=== PATIENT | female | born 1975 | race Caucasian/White ===

== ENCOUNTER → 2020-04-25 | Outpatient (CLI) | payer OTHER ==
[~2020-04-25] VITALS: Ht 167.6 cm; Wt 74.8 kg
[~2020-04-25] MED LIST: ACIDOPHILUS1 EAC3 PO; AMARYL1 MG PO; AMBIEN PO; BIRTH CONTROL PILL PO; CARAFATE 1 GM TA1 G1 PO; COLACE 100 MG100 MG PO; COREG PO; COREG25 MG PO; FLUOXETINE HCL20 M1 PO; HCTZ PO; IBUPROFEN 200200 M1 PO; INCASSIA0.35 MG PO; KEFLEX250 MG PO; METFORMIN HCL500 MG PO; MORPHINE TOP; MULTIVITAMINS PO; NEURONTIN 300M300 M2 PO; NORCO 5-325 TA1 EACH PO; OMEPRAZOLE40 MG PO; ONDANSETRON HCL4 M2 PO; PEPCID20 MG PO; PERCOCET PO; PROZAC PO; PROZAC20 MG PO; REMERON15 M2 PO; SILVADENE TOP; TRIAMTERENE-HC1 EAC1 PO; WOUND CLEANSER TOP; ZOCOR20 MG PO
[2020-04-25 15:05] VITALS: BP 104/75
--- NOTE | 2020-04-25 15:23 | NUR ---
Pain Clinic Assessment: 1. History of Osteoarthritis: Not Applicable History of Rheumatoid Arthritis: Not Applicable 2. Height: 5 ft. 6 in. 167.6 cm. Weight: 165.0 lb. oz. 74.844 kg. Patient's BMI: 26.6 3. Vital Signs: BP: 104/75 Pulse: 103 Resp: 16 Temp: 02 Sat: 99 ECG Mon: 4. Pain Intensity: 7 5. Fall Risk: Dizziness: N Needs help standing or walking: N Fallen in the last 3 months: N Fall risk comments: 6. Patient on Blood Thinner: None 7. History of Hypertension: Y 8. Opioid Therapy greater than 6 weeks: N Opiate Contract Signed: 9. Risk Assessment Tool Provided: 10. Functional Assessment Tool: 11. Recreational Drug Use: Never Drug Type: Tobacco Use: Never Smoker Tobacco Type: Amount or Packs/day: How Many Years: Alcohol Use: No Frequency: Quant:
--- NOTE | 2020-04-30 08:03 | HPC ---
[facility] [place] [address] PAIN MANAGEMENT CONSULTATION Name: AMARJIT SPANN [facility] #[facility] [id number] Admission: 04/25/20 Attend Phys: Arian Diaz DO Discharge: Date of : 79 Report #: [id number] THIS REPORT FOR: cc: Jesús López MD,Arian Wolfe MD, DO ~ DATE OF SERVICE: 04/25/2020 REFERRING PHYSICIAN: Mati López MD CHIEF COMPLAINT: Low back pain and left lower extremity pain with paresthesias. HISTORY OF PRESENT ILLNESS: As you know, the patient is a very pleasant 44-year-old female who reports acute onset of low back pain and left lower extremity pain with paresthesias that began in 02/2019. The patient states she was in normal state of health when the pain began. She denied any injury or trauma that may have led to symptom development. The patient indicates that she has trialed [id number] medications, rest and relaxation without improvement in symptoms. She sought evaluation through her primary care physician who trialled conservative medication management. This did not improve the patient's overall pain. She was subsequently sent for MRI of the lumbar spine, which showed some changes at the L5-S1 level concerning for lumbar radiculopathy. The patient was then subsequently referred to our clinic to discuss treatment options for suspected lumbar radiculopathy. The patient indicates pain today is continuous. She describes the pain as stabbing, numbness and tingling. She places current pain score of 7/10, daily average is 7/10, and worst pain has been is 7/10. The patient states standing, walking, sitting and lying down, tends to exacerbate symptoms, nothing appears to improve her symptoms today. She has been referred to our service to discuss treatment options for suspected lumbar radiculopathy. PAST MEDICAL HISTORY: 1. Diabetes mellitus type 2. 2. Hypertension. 3. Chronic stomach problems, status post gastric bypass. PAST SURGICAL HISTORY: 1. Cholecystectomy. 2. Gastric bypass. 3. Breast reduction. 4. LEEP procedure x 2. SOCIAL HISTORY: The patient denies tobacco, alcohol, IV or illicit drug use. She is working as a customs compliance specialist in sales. She is working, not [place] [address] [place] [address] PAIN MANAGEMENT CONSULTATION Name: AMARJIT SPANN Room #: [facility]PITAL[facility]ia.#: [id number] Admission: 04/25/20 Attend Phys: Arian Diaz DO Discharge: Date of : 79 Report #: [id number] receiving workmen's compensation nor is she trying to obtain disability benefits. She is not in litigation in regards to pain. REVIEW OF SYSTEMS: Positive for weight change, loss of appetite, changes in bowel movements, nausea, vomiting, frequent diarrhea interspersed with constipation, abdominal pain, peptic ulcer disease, numbness and tingling sensations involving the left lower extremity, depression. All other review of systems negative per 12-point review of systems other than those listed in history of present illness. Pain impact score 22/70 indicating nzyc-ns-[id number] interference of daily activities secondary to pain. ALLERGIES: No known drug allergies. CURRENT MEDICATIONS: Norethindrone 0.35 mg p.o. daily, Remeron 50 mg p.o. at bedtime, fluoxetine 20 mg per day, omeprazole 40 mg per day, multivitamin 1 tab per day. IMAGING: MRI lumbar spine obtained on 04/10/2020 shows L1-L2 with mild disk space narrowing, diffuse disk bulge with mild central canal stenosis measuring 10 mm. No foraminal stenosis. L2-L3, disk space narrowing, minimal disk bulge, left lateral disk osteophyte complex, no significant central canal nor neural foraminal stenosis. L3-L4, there are posterior changes of the disk representing annular tear, diffuse bulge of the disk itself. Facet and ligamentum flavum hypertrophy also noted. Canal was minimally affected to 9 mm, neural foramen are patent. L4-L5 facet and ligamentum flavum changes, minimal diffuse annular changes. Thecal sac measuring 9 mm, neural foramen are patent. L5-S1, facet and ligamentum flavum hypertrophy, diffuse annular bulging, focal central disk protrusion, thecal sac measuring 9 mm encroachment upon the left lateral recess and neural foramen are patent. PHYSICAL EXAMINATION: VITAL SIGNS: Blood pressure 104/75, pulse 103, respiratory rate 16 and unlabored. The patient is 99% on room air. Height 5 feet 6 inches tall, weight 165 pounds, BMI calculated 26.6. GENERAL: Well-developed, well-nourished, well-hydrated 44-year-old female appearing her stated age. She is placing current pain score at 7/10. HEENT: Normocephalic, atraumatic. Pupils equal, round and reactive. Extraocular muscles are intact. NEUROLOGIC: Speech fluent. The patient deemed an excellent historian. LUNGS: Clear, no wheeze, rhonchi or rales. CARDIOVASCULAR: Regular. No appreciable gallop, no rub. ABDOMEN: Soft, mildly obese, normoactive bowel sounds. EXTREMITIES: Show no clubbing, no cyanosis, and no edema. MUSCULOSKELETAL: Lower extremity strength equal and symmetrical 5/5. She has [address] [address] PAIN MANAGEMENT CONSULTATION Name: AMARJIT SPANN Room #: REG [facility]#: [id number] Admission: 04/25/20 Attend Phys: Arian Diaz DO Discharge: Date of : 77 Report #: [id number] intact to light touch from L1 through S2 dermatomes. Seated straight leg raising negative. Supine straight leg raising positive on the left. Tre's test is negative. Modified Gaenslen's positive for axial low back pain. Ankle clonus negative. Babinski is negative. Lumbar provocation testing is met with slight increase in axial back pain directly over the L4-L5 and L5-S1 facet joints. No SI joint dysfunction. ASSESSMENT: 1. Chronic lumbar radiculopathy. 2. Lumbosacral spondylosis with radiculopathy. 3. Disk degeneration of lumbar spine. 4. Lumbar degeneration. PLAN: 1. Based on today's physical exam and history the patient has provided, the description the patient uses in regards to pain, likely source of the patient's pain is lumbar radiculopathy. We are pleased to advise the patient that the findings of her MRI show little or no significant findings except for the L5-S1 level, which there is some encroachment upon the left lateral recess consistent with the patient's distribution of symptoms based on physical exam today. We discussed with the patient the treatment options we have available to address lumbar radiculopathy and the following was discussed with the patient today. We discussed physical therapy, stretching exercises and core strengthening as a treatment option. We discussed medication management utilizing neuropathic pain medications such as nortriptyline, amitriptyline, Cymbalta, Lyrica or gabapentin. We discussed epidural injections under fluoroscopic guidance for which the patient was referred to our clinic. We also discussed spinal cord stimulator therapy and surgical options, though I do not feel that these are necessary at this time. After reviewing the risks and benefits of all the proposed treatment options, the patient chose to move forward with possible lumbar epidural injection under fluoroscopic guidance. 2. Due to third libertarian payer restrictions, authorization will have to be obtained before the patient could undergo an epidural injection under fluoroscopic guidance. We will begin this authorization process immediately. Once it is completed, we will have the patient return to undergo the first in the series of lumbar epidural injections. 3. The patient was provided a prescription of gabapentin 300 mg dose. She will start 1 tab p.o. at bedtime for 2 nights, then increase to 2 tabs p.o. at bedtime for 2 nights and then 3 tabs p.o. at bedtime for 2 nights. If no improvement in symptoms and no side effects such as sleepiness, disorientation, confusion, mental slowing, then she will increase to 1 tab in the morning and 3 tabs at night for 2 days, continuing this titration until reaching 3 tabs t.i.d. The patient was given #180 tablets with a titration schedule to follow. We will discuss the medications at our followup visit once we have approval for the epidural. [address] [address] PAIN MANAGEMENT CONSULTATION Name: TIANAALBAN KIMHANIE Jaime Room #: REG [facility] Lehman#: [id number] Admission: 04/25/20 Attend Phys: Arian Diaz DO Discharge: Date of : 79 Report #: [id number] 4. We will see the patient back in followup visit once we have authorization to undergo a lumbar epidural injection. We are hopeful the patient will see some improvement in her symptoms with gabapentin therapy. 5. We wish to thank Dr. Mati López for the referral of the patient to our clinic. We will keep you apprised of response to treatment as we address suspected lumbar radiculopathy. Again, we wish to thank you for the opportunity to see the patient in consultation. <ELECTRONICALLY SIGNED> By: Arian Diaz DO 04/30/20 [id number] Arian Diaz DO /nt
== END ==
LOC: PAIN 07:07
PROVIDERS: ATTEND Anesthesiology Pain Medicine
DX: M51.16 Intervertebral disc disorders with radiculopathy, lumbar region (principal); M79.604 Pain in right leg; M79.605 Pain in left leg; R20.2 Paresthesia of skin; M47.27 Other spondylosis with radiculopathy, lumbosacral region; Z79.899 Other long term (current) drug therapy

== ENCOUNTER → 2020-10-16 | Outpatient (CLI) | payer OTHER ==
[~2020-10-16] VITALS: Ht 167.6 cm; Wt 85.1 kg
[2020-10-16 13:26] VITALS: BP 120/85
--- NOTE | 2020-10-16 13:32 | NUR ---
Pain Clinic Assessment: 1. History of Osteoarthritis: Not Applicable History of Rheumatoid Arthritis: Not Applicable 2. Height: 5 ft. 6 in. 167.6 cm. Weight: 187.6 lb. oz. 85.095 kg. Patient's BMI: 30.3 3. Vital Signs: BP: 120/85 Pulse: 90 Resp: 18 Temp: 02 Sat: 99 ECG Mon: 4. Pain Intensity: 4 5. Fall Risk: Dizziness: N Needs help standing or walking: N Fallen in the last 3 months: N Fall risk comments: 6. Patient on Blood Thinner: None 7. History of Hypertension: Y 8. Opioid Therapy greater than 6 weeks: N Opiate Contract Signed: 9. Risk Assessment Tool Provided: 10. Functional Assessment Tool: 11. Recreational Drug Use: Never Drug Type: Tobacco Use: Never Smoker Tobacco Type: Amount or Packs/day: How Many Years: Alcohol Use: No Frequency: Quant:
--- NOTE | 2020-10-17 12:59 | HPC ---
[facility] [place] [address] PAIN MANAGEMENT CONSULTATION Name: AMARJIT SPANN [facility] #: [facility] [id number] Admission: 10/16/20 Attend Phys: Arian Diaz DO Discharge: Date of : 79 Report #: [id number] THIS REPORT FOR: cc: Jesús López MD,Arian Wolfe MD, DO ~ DATE OF SERVICE: 10/16/2020 REFERRING PHYSICIAN: Dr. Mati López. CHIEF COMPLAINT: Low back pain, left lower extremity pain with paresthesias. HISTORY OF PRESENT ILLNESS: As you know, the patient is a very pleasant 45-year-old female who has returned today in followup visit to undergo lumbar epidural injection under fluoroscopic guidance. The patient indicates pain began in 02/2019. No inciting injury or trauma. She states she was in her normal state of health when all this began. She was seen in consultation per the request of Dr. López in 04/25/2020, diagnosed with lumbar radiculopathy and established a treatment course. She underwent a lumbar epidural injection at an outside facility with excellent benefit reporting up to 80% improvement overall. Unfortunately, her symptoms recurred without inciting injury or trauma. She states she was going about her daily activity, which she felt a sharp intense pain in low back and then began to radiate down the leg. She trialled conservative treatment and home stretching, but this did not improve symptoms. She made today's appointment to discuss undergoing a lumbar epidural injection given her efficacy with previous injections. ALLERGIES: No known drug allergies. CURRENT MEDICATIONS: Multivitamin 1 tablet per day, fluoxetine 20 mg per day, Remeron 15 mg p.o. q.a.m., norethindrone 0.35 mg once a day. SOCIAL HISTORY: The patient denies tobacco, alcohol or IV illicit drug use. She is working, not receiving workmen's compensation, unaccompanied today. IMAGING: No new imaging available. PHYSICAL EXAMINATION: VITAL SIGNS: Blood pressure 120/85, pulse 90, respiratory rate 18 and unlabored. The patient is 99% on room air. Height 5 feet 6 inches tall, weight 187.6 pounds, BMI calculated 30.3. GENERAL: Well-developed, well-nourished, well-hydrated 45-year-old female appearing stated age, pain is rated today around 4/10. HEENT: Normocephalic and atraumatic. Pupils are equal, round and reactive. The patient is wearing a mask in compliance with COVID-19 regulations. EXTREMITIES: Show no clubbing, no cyanosis, [place] [address] PAIN MANAGEMENT CONSULTATION Name: AMARJIT SPANN Room #: REG CL Dominik#: [id number] Admission: 10/16/20 Attend Phys: Arian Diaz DO Discharge: Date of : 79 Report #: [id number] MUSCULOSKELETAL: Lower extremity strength remains symmetrical again today /5. This is unchanged from previous evaluation. Remains intact to light touch from L1 through S2 dermatomes. Seated straight leg raising remains negative. Supine straight leg raising is positive on the left at about 70-degree angle. Ankle clonus negative. Gait appears normal. Muscle bulk and tone equal and symmetrical in lower extremities. ASSESSMENT: 1. Symptomatic lumbar radiculopathy. 2. Lumbosacral spondylosis with radiculopathy. 3. Degeneration of lumbar spine. 4. Chronic intractable pain. PLAN: 1. The patient returns today in followup visit requesting to undergo lumbar epidural injection under fluoroscopic guidance. The patient underwent an epidural injection in an outside facility where she received 80% improvement in overall pain lasting for a protracted period of time. Unfortunately, her symptoms have reoccurred without inciting injury or trauma. She returns to undergo a lumbar epidural injection under fluoroscopic guidance here at our clinic at [facility] in [facility]. The patient has been advised risks and benefits of the procedure. These risks include but are not necessarily limited to bleeding, bruising, infection, worsening pain, no relief of pain, also risk of temporary or permanent muscle weakness, temporary or permanent nerve damage, possible paralysis and . The patient states understood and wished to proceed. 2. No medication changes made at today's visit. The patient will continue current medical therapy as prior prescribed. 3. We plan to see the patient back in followup visit on an as needed basis for possible next in the series of epidural injections. We are hopeful the patient will see once again good and prolonged benefit with a lumbar epidural injection. PROCEDURE: L5-S1 left paramedian epidural steroid injection under fluoroscopic guidance. DESCRIPTION OF PROCEDURE: After obtaining written consent, the patient was taken back to fluoroscopy suite, placed in prone position with pillow under abdomen to decrease lumbar lordosis. Skin overlying lumbosacral area then prepped and draped in aseptic fashion. L5-S1 vertebral interspace identified by AP fluoroscopy. Skin and subcutaneous tissue overlying target site injection anesthetized with 3 mL of 1% lidocaine. A 20-gauge 3-1/2 inch Tuohy needle advanced under fluoroscopic guidance towards the epidural space using left paramedian approach. Epidural space identified using loss of resistance to air technique. After negative aspiration for heme or cerebrospinal fluid, 1mL Omnipaque injected. Lumbar epidurogram confirmed [facility] [address] [place] [address] PAIN MANAGEMENT CONSULTATION Name: AMARJIT SPANN [facility] #: [facility]Day[facility] [id number] Admission: 10/16/20 Attend Phys: Arian Diaz DO Discharge: Date of : 79 Report #: [id number] using both AP and lateral fluoroscopy. After negative aspiration for heme or cerebrospinal fluid, 5 mL of a solution containing 2 mL 40 mg per mL, 80 mg total triamcinolone along with 3 mL of lidocaine 1% injected slowly. Needle retracted longterm, flushed with 1 mL of 1% lidocaine, then removed. Sterile bandage placed over injection site. No new motor deficits present in lower extremity following procedure. The patient tolerated the procedure well, carefully escorted to recovery room in stable condition. No apparent complications. After meeting discharge criteria, the patient discharged home. <ELECTRONICALLY SIGNED> By: Arian Diaz DO 10/17/20 [id number] Arian Diaz DO /nt
== END | disposition home or self-care (01) ==
LOC: PAIN 05-23 14:25
PROVIDERS: ATTEND Anesthesiology Pain Medicine
DX: M51.16 Intervertebral disc disorders with radiculopathy, lumbar region (principal); M47.27 Other spondylosis with radiculopathy, lumbosacral region; G89.29 Other chronic pain; Z79.899 Other long term (current) drug therapy; Z98.890 Other specified postprocedural states

== ENCOUNTER → 2021-07-16 | Outpatient (CLI) | payer OTHER ==
[~2021-07-16] VITALS: Ht 167.6 cm; Wt 88.8 kg
[~2021-07-16] MED LIST changes: +LEXAPRO20 MG PO; +REMERON30 MG PO
--- NOTE | ~2021-07-16 | HPC ---
[facility] [place] [address] PAIN MANAGEMENT CONSULTATION Name: AMARJIT SPANN Room #: REG [facility].#: [id number] Admission: 07/16/21 Attend Phys: Arian Diaz DO Discharge: Date of : 79 Report #: [id number] THIS REPORT FOR: cc: Jesús López MD,Arian Wolfe MD, DO ~ cc: Mati López MD DATE OF SERVICE: 07/16/2021 REFERRING PHYSICIAN: Mati López MD CHIEF COMPLAINT: Axial back pain. HISTORY OF PRESENT ILLNESS: As you know, the patient is a pleasant 45-year-old female, who was referred to our clinic initially for low back pain, left lower extremity pain and paresthesias, which was resolved with a lumbar epidural injection under fluoroscopic guidance performed 10/16/2020. She had been doing very well until just recently where she had an increase in axial back pain started about 2 months ago. She describes the pain as more constant aching sensation, exacerbated with activities such as sitting and standing for long periods of time, improves with lying down. She is able to localize pain directly over the axial back. She has trialled ietc-kpc-[id number] medication without benefit. She has trialled rest, relaxation and some stretching exercises, again without benefit. She has been referred back to our clinic by her primary care physician to discuss treatment options for this unresolved axial back pain that began about 2 months ago. The patient denies injury or trauma. She has not been started on any medication that would preclude the patient from undergoing some type of interventional treatment. ALLERGIES: No known drug allergies. CURRENT MEDICATIONS: Remeron 30 mg once a day, Escitalopram 20 mg once a day, multivitamin 1 tab per day. SOCIAL HISTORY: The patient denies tobacco. Denies IV or illicit drug use. Denies any chronic alcohol use. She is working, not receiving workmen's compensation, unaccompanied today. IMAGING: No new imaging available. PHYSICAL EXAMINATION: VITAL SIGNS: Blood pressure 113/86, pulse is 100, respiratory rate 16 and unlabored. The patient 98% on room air. Height 5 feet 6 inches tall, weight 195.8 pounds, BMI calculated 31.6. GENERAL: A well-developed, well-nourished, well-hydrated 45-year-old female appearing stated age, pain is rated around 6/10. [address] [address] PAIN MANAGEMENT CONSULTATION Name: AMARJIT SPANN Room #: REG [facility]#: [id number] Admission: 07/16/21 Attend Phys: Arian Diaz DO Discharge: Date of : 79 Report #: [id number] HEENT: Normocephalic, atraumatic. Pupils equal, round and responsive. She is wearing a mask in compliance with COVID-19 regulations. EXTREMITIES: Show no clubbing, no cyanosis. No appreciable edema. MUSCULOSKELETAL: Lower extremity strength remains symmetrical 5/5, intact to light touch from L1 through S2 dermatomes. Seated straight leg raising negative. Supine straight leg raising negative. Fabere's test is negative. Modified Gaenslen's positive for axial low back pain. Lumbar provocation testing including extension, rotation, lateral flexion all intensify axial back symptoms. There is palpatory tenderness noted over the paraspinal musculature of the lower lumbar spine. No spinous process tenderness. ASSESSMENT: 1. Symptomatic lumbosacral spondylosis without radiculopathy. 2. Lumbar facet arthropathy. 3. Lumbar degeneration. 4. Chronic intractable pain. PLAN: Based on today's physical exam and history the patient has provided, the description the patient uses in regards to pain as well as location of symptoms without radiation of pain into the lateral back, buttock or legs, the legs source of symptoms the patient is experiencing today is the facet joints of the lumbar spine. This has been determined with physical exam and the distribution of the pain the patient has been experiencing pain upon. We discussed with the patient that the facet arthropathy is typically treated in multiple ways. The following was discussed with the patient for treatment options. 1. We discussed physical therapy, stretching exercises, core strengthening techniques as a treatment approach. We discussed medication management, but do understand the patient cannot be on the medication of choice, nonsteroidal anti-inflammatories due to gastric bypass in 2019. We discussed a diagnostic intra-articular facet injections as a treatment course. We also discussed medial branch nerve blocks and radiofrequency lesioning as a treatment approach to address symptoms via the medial branch nerves and we also discussed surgical options. After reviewing risks and benefits of all proposed treatment options, the patient chose to begin with some core strengthening techniques and xigj-gxq-tlbiajw medication use. If this is not successful in alleviating symptoms and reducing overall pain, she would like to move forward with a diagnostic intraarticular facet injections to address the L4-L5 and L5-S1 levels bilaterally. 2. The patient will begin strengthening and core exercise programs. I have given her different stretching exercises, core strengthening processes here today. She will begin that process immediately. We have advised the patient if she needs she can utilize p.r.n. wnfq-ags-ueliqoo nonsteroidal anti-inflammatory for just a short period of time. She cannot use these consistently. The combination may improve the symptoms the patient is experiencing and allow her to return to normal activity. If she is not seeing improvement in 2 weeks, we [facility] [address] [place] [place] [address] PAIN MANAGEMENT CONSULTATION Name: AMARJIT SPANN Room #: REG [facility].#: [id number] Admission: 07/16/21 Attend Phys: Arian Diaz DO Discharge: Date of : 79 Report #: [id number] will plan to have her undergo the intra-articular facet injections proposed as the second treatment course. The patient is agreeable with that plan. 3. We will begin the authorization process for the patient to undergo bilateral L4-L5, L5-S1 diagnostic intraarticular facet injections under fluoroscopic guidance. I am hopeful that the authorization can be obtained quickly and the patient can return to undergo the procedure. We will obtain these authorizations as quickly as possible and be prepared when the patient returns if her more conservative options are ineffective. We wish to thank Dr. López for the referral of the patient back to our clinic for her axial back symptoms. Again, we wish to thank Dr. López for the referral. By: [id number] Arian Diaz DO /nt
[2021-07-16 14:03] VITALS: BP 113/86
--- NOTE | 2021-07-16 14:18 | NUR ---
Pain Clinic Assessment: 1. History of Osteoarthritis: Not Applicable History of Rheumatoid Arthritis: Not Applicable 2. Height: 5 ft. 6 in. 167.6 cm. Weight: 195.8 lb. oz. 88.814 kg. Patient's BMI: 31.6 3. Vital Signs: BP: 113/86 Pulse: 100 Resp: 16 Temp: 02 Sat: 98 ECG Mon: 4. Pain Intensity: 6 5. Fall Risk: Dizziness: N Needs help standing or walking: N Fallen in the last 3 months: Y Fall risk comments: 6. Patient on Blood Thinner: None 7. History of Hypertension: Y 8. Opioid Therapy greater than 6 weeks: N Opiate Contract Signed: 9. Risk Assessment Tool Provided: low-2 10. Functional Assessment Tool: 57/70 11. Recreational Drug Use: Never Drug Type: Tobacco Use: Never Smoker Tobacco Type: Amount or Packs/day: How Many Years: Alcohol Use: No Frequency: Quant:
== END ==
LOC: PAIN 07:24
PROVIDERS: ATTEND Anesthesiology Pain Medicine
DX: M47.27 Other spondylosis with radiculopathy, lumbosacral region (principal); G89.4 Chronic pain syndrome; Z79.891 Long term (current) use of opiate analgesic; Z79.899 Other long term (current) drug therapy